=== PATIENT | male | born 1940 | race Caucasian/White ===

== ENCOUNTER 2021-09-29 13:13 | Inpatient (IN) | payer MEDICAID, MEDICARE ==
[~2021-09-29] VITALS: Ht 174 cm; Wt 86.4 kg
[~2021-09-29 13:13] MED LIST: XAL0.005OS RIGHTEYE
--- NOTE | 2021-09-29 13:39 | NUR ---
[facility] ([facility] [employer], #[phone]
[2021-09-29] MEDS ORDERED: normal saline 1000ML IV soln IVB ONE (14:05)
[2021-09-29 14:34] LABS: BASOPHILS % (AUTO) 0.4 % (0-1); EOSINOPHILS % (AUTO) 0.2 % (0-6); HEMOGLOBIN 15.8 g/dl (14.0-17.9); LYMPHOCYTES # (AUTO) 1.7 X10'3 (1.1-4.8); LYMPHOCYTES % (AUTO) 19.3 % (21-51); MEAN CORPUSCULAR HEMOGLOBIN 31.3 PG (27.0-31.0); MEAN CORPUSCULAR HGB CONC 33.5 g/dL (33.0-36.5); MEAN CORPUSCULAR VOLUME 93.2 FL (78-98); MEAN PLATELET VOLUME 6.9 FL (7.4-10.4); MONOCYTES # (AUTO) 0.7 X10'3 (0-0.9); MONOCYTES % (AUTO) 7.8 % (2-12); NEUTROPHILS # (AUTO) 6.2 X10'3 (1.8-7.7); NEUTROPHILS % (AUTO) 72.3 % (42-75); PLATELET COUNT 293 X10'3 (140-440); RED BLOOD COUNT 5.04 X10'6 (4.70-6.10); RED CELL DISTRIBUTION WIDTH 14.4 % (11.5-14.5); WHITE BLOOD COUNT 8.6 X10'3 (4.5-11.0)
[2021-09-29 14:45] LABS: ALANINE AMINOTRANSFERASE 24 U/L (12-78); ALBUMIN 4.2 G/DL (3.4-5.0); ALKALINE PHOSPHATASE 135 IU/L (46-116); ANION GAP 12 (8-16); ASPARTATE AMINO TRANSFERASE 19 U/L (10-37); BILIRUBIN,TOTAL 0.8 MG/DL (0.1-1.0); BLOOD UREA NITROGEN 27 MG/DL (7-18); BUN/CREATININE RATIO 16.2 (5.4-32.0); CALCIUM 9.5 MG/DL (8.5-10.1); CHLORIDE 106 MMOL/L (99-107); CREATININE 1.67 MG/DL (0.60-1.10); GLUCOSE 113 MG/DL (70-104); POTASSIUM 4.8 MMOL/L (3.5-5.1); SODIUM 143 MMOL/L (135-145); TOTAL CARBON DIOXIDE 25.4 MMOL/L (24-32); TOTAL PROTEIN 8.6 G/DL (6.4-8.2); eGFR 40 ML/MIN
[2021-09-29] MEDS ORDERED: aspirin 81mg tab.chew PO ONE (15:10)
[2021-09-29] MEDS ORDERED: NO HOME MEDS (15:48)
[2021-09-29] MEDS ORDERED: magnesium Cl slow-release 64mg tablet PO PRN (16:25)
[2021-09-29] MEDS ORDERED: magnesium 2GM in 50ml NS 50 ML IV PRN (16:25)
[2021-09-29] MEDS ORDERED: POTASSIUM BICARB 20meq eff tab 20 MEQ TABLET.EFF PO PRN ×2 (16:25)
[2021-09-29] MEDS ORDERED: mag hydrox/Alum hydrox/simeth 30ml oral suspension PO PRN (16:25)
[2021-09-29] MEDS ORDERED: magnesium 4gm in 100ml NS 100 ML IV PRN (16:25)
[2021-09-29] MEDS ORDERED: ondansetron/PF 4mg/2ml inj IV PRN (16:25)
[2021-09-29] MEDS ORDERED: magnesium hydroxide 30ml (MOM) UD suspension PO PRN (16:25)
[2021-09-29] MEDS ORDERED: ondansetron 4mg rapidly disintigrating tab PO PRN (16:25)
[2021-09-29] MEDS ORDERED: PERFLUTREN PROTEIN-A MICROSPHR (Optison) 0.22 MG/ML 3ML VIAL IV ONE (16:25)
[2021-09-29] MEDS ORDERED: potassium CL 10mEq/100ml bag 100 ML IV PRN (16:25)
[2021-09-29] MEDS: normal saline 1000ml 1,000 ML IV SCH ×2 (16:25→21:47)
[2021-09-29 17:11] LABS: HEMOGLOBIN A1C 5.8 % (4.5-6.2)
[2021-09-29] MEDS ORDERED: heparin 10,000 units/1 ML INJ IV ONE (17:21)
[2021-09-29] MEDS: HEPARIN SOD,PORK IN 0.45% NACL 250 ML IV SCH (17:22)
[2021-09-29] MEDS: K and/or MAG REPLACEMENT MC SCH (18:52)
[2021-09-29] MEDS: docusate sod 100mg capsule PO SCH (18:52)
[2021-09-29 19:00] LABS: APTT 25 SECONDS (22-32)
[2021-09-29 19:01] LABS: BASOPHILS % (AUTO) 0.4 % (0-1); EOSINOPHILS % (AUTO) 0.4 % (0-6); HEMATOCRIT 44.1 % (42.0-52.0); HEMOGLOBIN 14.7 g/dl (14.0-17.9); LYMPHOCYTES # (AUTO) 2.1 X10'3 (1.1-4.8); LYMPHOCYTES % (AUTO) 28.2 % (21-51); MEAN CORPUSCULAR HEMOGLOBIN 31.5 PG (27.0-31.0); MEAN CORPUSCULAR HGB CONC 33.5 g/dL (33.0-36.5); MEAN CORPUSCULAR VOLUME 94.1 FL (78-98); MEAN PLATELET VOLUME 7.1 FL (7.4-10.4); MONOCYTES # (AUTO) 0.6 X10'3 (0-0.9); MONOCYTES % (AUTO) 8.7 % (2-12); NEUTROPHILS # (AUTO) 4.6 X10'3 (1.8-7.7); NEUTROPHILS % (AUTO) 62.3 % (42-75); PLATELET COUNT 252 X10'3 (140-440); RED BLOOD COUNT 4.68 X10'6 (4.70-6.10); RED CELL DISTRIBUTION WIDTH 14.2 % (11.5-14.5); WHITE BLOOD COUNT 7.4 X10'3 (4.5-11.0)
[2021-09-29] MEDS ORDERED: metoprolol tartrate 25mg tablet PO ONE (21:35)
[2021-09-29 21:49] VITALS: BP 182/90
[2021-09-29] MEDS ORDERED: nitroGLYCERIN 0.4mg SUBLingual tab SL PRN (22:45)
[2021-09-29] MEDS ORDERED: regadenoson 0.4mg/5ml syringe IV PRN (22:45)
[2021-09-29] MEDS ORDERED: metoprolol tartrate 1mg/ml inj IV PRN (22:45)
[2021-09-29] MEDS ORDERED: aminophylline 500mg/20ml vial IV PRN (22:45)
[2021-09-29 23:26] VITALS: BP 132/71
[2021-09-30] VITALS (14 sets, daily range): BP systolic 108–152; BP diastolic 62–90
[2021-09-30 01:00] LABS: BASOPHILS # (AUTO) 0.1 X10'3 (0-0.2); BASOPHILS % (AUTO) 0.9 % (0-1); EOSINOPHILS # (AUTO) 0.1 X10'3 (0-0.9); EOSINOPHILS % (AUTO) 1.4 % (0-6); HEMATOCRIT 41.7 % (42.0-52.0); HEMOGLOBIN 14.2 g/dl (14.0-17.9); LYMPHOCYTES # (AUTO) 2.5 X10'3 (1.1-4.8); LYMPHOCYTES % (AUTO) 32.9 % (21-51); MEAN CORPUSCULAR HEMOGLOBIN 31.9 PG (27.0-31.0); MEAN CORPUSCULAR HGB CONC 34.1 g/dL (33.0-36.5); MEAN CORPUSCULAR VOLUME 93.7 FL (78-98); MEAN PLATELET VOLUME 7.1 FL (7.4-10.4); MONOCYTES # (AUTO) 0.7 X10'3 (0-0.9); MONOCYTES % (AUTO) 9.5 % (2-12); NEUTROPHILS # (AUTO) 4.2 X10'3 (1.8-7.7); NEUTROPHILS % (AUTO) 55.3 % (42-75); PLATELET COUNT 252 X10'3 (140-440); RED BLOOD COUNT 4.46 X10'6 (4.70-6.10); RED CELL DISTRIBUTION WIDTH 14.2 % (11.5-14.5); WHITE BLOOD COUNT 7.6 X10'3 (4.5-11.0)
[2021-09-30 01:17] LABS: ALANINE AMINOTRANSFERASE 18 U/L (12-78); ALBUMIN 3.3 G/DL (3.4-5.0); ALBUMIN/GLOBULIN RATIO 0.9 (1.1-1.5); ALKALINE PHOSPHATASE 113 IU/L (46-116); ANION GAP 12 (8-16); ASPARTATE AMINO TRANSFERASE 17 U/L (10-37); BILIRUBIN,TOTAL 0.6 MG/DL (0.1-1.0); BLOOD UREA NITROGEN 26 MG/DL (7-18); BUN/CREATININE RATIO 22.2 (5.4-32.0); CALCIUM 8.4 MG/DL (8.5-10.1); CHLORIDE 108 MMOL/L (99-107); CHOL/HDL RATIO 3.5 (0.00-4.99); CHOLESTEROL 159 MG/DL (0-200); CREATININE 1.17 MG/DL (0.60-1.10); GLUCOSE 122 MG/DL (70-104); HDL CHOLESTEROL 45 MG/DL (35-60); LDL CHOLESTEROL 99 MG/DL (50-100); MAGNESIUM 1.9 MG/DL (1.5-2.4); PHOSPHORUS 3.7 MG/DL (2.3-4.5); POTASSIUM 4.2 MMOL/L (3.5-5.1); SODIUM 144 MMOL/L (135-145); TOTAL CARBON DIOXIDE 24.3 MMOL/L (24-32); TRIGLYCERIDES 48 MG/DL (20-135); eGFR 60 ML/MIN
[2021-09-30] MEDS: heparin 10,000 units/1 ML INJ IV PRN ×2 (01:41→13:47)
--- NOTE | 2021-09-30 06:28 | NUR ---
Problems reprioritized. Patient report given, questions answered & plan of care reviewed with BONNIE MEADOWS.
--- NOTE | 2021-09-30 06:35 | NUR ---
Patient in room PCU 3015. I have received report from Maribell MEADOWS and had the opportunity to ask questions and assume patient care.
[2021-09-30] MEDS: K and/or MAG REPLACEMENT MC SCH ×2 (08:00→20:00)
--- NOTE | 2021-09-30 08:22 | NUR ---
Paged Dr. Zavala regarding pts ptt of 124. I will follow protocol. Message: 30`5A, Johnna Osorio. Pts ptt is 124. I will hold per protocol. Ana Luisa [facility] 6552.
[2021-09-30] MEDS: docusate sod 100mg capsule PO SCH ×2 (10:10→20:00)
[2021-09-30] MEDS: aspirin 81mg, enteric-coated 1 TAB TABLET.DR PO SCH (10:10)
--- NOTE | 2021-09-30 11:34 | NUR ---
Paged Dr. Zavala regarding if pt can have contrast media today since he already had a lexiscan done this morning. Message: [id number], Johnna Osorio. Pt had a lexiscan this morning. Is it ok for the patient to receive contrast media today? Ana Luisa [facility] 3796.
[2021-09-30] MEDS ORDERED: iohexol 350MG/ML 100ml bottle IV ONE (12:18)
[2021-09-30] MEDS: normal saline 1000ml 1,000 ML IV SCH ×2 (12:25→22:25)
--- NOTE | 2021-09-30 13:11 | NUR ---
Paged Dr. Zavala regarding results from the CTA. Message: [id number], Johnna Osorio. 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 The report should be in soon. [facility] 5371.
--- NOTE | 2021-09-30 16:02 | NUR ---
Paged Dr. Zavala asking if the patient can eat. Message: [id number], Jhonna Osorio. Can the patient eat? Ana Luisa [facility] 3974.
[2021-09-30] MEDS: atorvastatin 20mg tablet PO SCH (16:29)
--- NOTE | 2021-09-30 18:08 | NUR ---
Problems reprioritized. Patient report given, questions answered & plan of care reviewed with Prudence RN, patient stable at transfer of care.
--- NOTE | 2021-09-30 19:10 | NUR ---
Patient in room PCU 3015. I have received report from BONNIE MEADOWS and had the opportunity to ask questions and assume patient care.
[2021-09-30] MEDS: metoprolol tartrate 12.5mg (1/2 tablet) PO SCH (19:53)
[2021-09-30] MEDS: HEPARIN SOD,PORK IN 0.45% NACL 250 ML IV SCH (19:55)
[2021-10-01 02:00] VITALS: BP 105/72
[2021-10-01 02:14] LABS: BASOPHILS % (AUTO) 0.7 % (0-1); EOSINOPHILS # (AUTO) 0.2 X10'3 (0-0.9); EOSINOPHILS % (AUTO) 2.4 % (0-6); HEMATOCRIT 40.1 % (42.0-52.0); HEMOGLOBIN 13.9 g/dl (14.0-17.9); LYMPHOCYTES # (AUTO) 2.6 X10'3 (1.1-4.8); LYMPHOCYTES % (AUTO) 35.2 % (21-51); MEAN CORPUSCULAR HEMOGLOBIN 32.2 PG (27.0-31.0); MEAN CORPUSCULAR HGB CONC 34.6 g/dL (33.0-36.5); MEAN CORPUSCULAR VOLUME 93.3 FL (78-98); MEAN PLATELET VOLUME 6.9 FL (7.4-10.4); MONOCYTES # (AUTO) 0.6 X10'3 (0-0.9); MONOCYTES % (AUTO) 8.5 % (2-12); NEUTROPHILS # (AUTO) 3.9 X10'3 (1.8-7.7); NEUTROPHILS % (AUTO) 53.2 % (42-75); PLATELET COUNT 237 X10'3 (140-440); RED CELL DISTRIBUTION WIDTH 13.9 % (11.5-14.5); WHITE BLOOD COUNT 7.3 X10'3 (4.5-11.0)
[2021-10-01 02:43] LABS: ALANINE AMINOTRANSFERASE 24 U/L (12-78); ALBUMIN 3.1 G/DL (3.4-5.0); ALBUMIN/GLOBULIN RATIO 0.9 (1.1-1.5); ALKALINE PHOSPHATASE 114 IU/L (46-116); ANION GAP 9 (8-16); ASPARTATE AMINO TRANSFERASE 18 U/L (10-37); BILIRUBIN,TOTAL 0.5 MG/DL (0.1-1.0); BLOOD UREA NITROGEN 19 MG/DL (7-18); BUN/CREATININE RATIO 19.4 (5.4-32.0); CHLORIDE 107 MMOL/L (99-107); CREATININE 0.98 MG/DL (0.60-1.10); GLUCOSE 97 MG/DL (70-104); MAGNESIUM 1.5 MG/DL (1.5-2.4); POTASSIUM 3.9 MMOL/L (3.5-5.1); SODIUM 141 MMOL/L (135-145); TOTAL CARBON DIOXIDE 24.6 MMOL/L (24-32); TOTAL PROTEIN 6.7 G/DL (6.4-8.2); eGFR 74 ML/MIN
[2021-10-01 06:00] VITALS: BP 120/73
--- NOTE | 2021-10-01 06:38 | NUR ---
Problems reprioritized. Patient report given, questions answered & plan of care reviewed with BONNIE MEADOWS.
[2021-10-01] MEDS: K and/or MAG REPLACEMENT MC SCH ×2 (08:00→20:00)
--- NOTE | 2021-10-01 09:05 | NUR ---
Tele med monitor in room, request completed - pends review A new connect request was successfully created for: ALLAN BERGMAN : 1940 ConnectID: [id number] REASON: Abnormal Imaging ACUITY: Acuity Level 4 SUBMITTED: 10/01/2021 09:04 PDT
[2021-10-01] MEDS: aspirin 81mg, enteric-coated 1 TAB TABLET.DR PO SCH (09:17)
[2021-10-01] MEDS: pantoprazole 40mg Tablet.DR PO SCH (09:17)
[2021-10-01] MEDS: atorvastatin 20mg tablet PO SCH (09:17)
[2021-10-01] MEDS: metoprolol tartrate 12.5mg (1/2 tablet) PO SCH ×2 (09:18→20:02)
[2021-10-01] MEDS: docusate sod 100mg capsule PO SCH ×2 (09:19→20:03)
[2021-10-01 11:00] VITALS: BP 152/88
--- NOTE | 2021-10-01 11:00 | NUR ---
notified of need for leg xray to check for ability to do MRI, order received.
--- NOTE | 2021-10-01 11:00 | NUR ---
Dr. Zavala notified f
[2021-10-01] MEDS: normal saline 1000ml 1,000 ML IV SCH ×2 (13:00→22:35)
[2021-10-01 15:00] VITALS: BP 118/75
[2021-10-01] MEDS: heparin 10,000 units/1 ML INJ IV PRN (16:21)
--- NOTE | 2021-10-01 16:47 | NUR ---
Message: 3015aBashir Oropeza. IR doc at [facility] is trying to get ahold of you. Please call [phone]. thx Transaction number: [id number]
[2021-10-01] MEDS: clopidogrel 75mg tablet PO SCH (17:14)
--- NOTE | 2021-10-01 19:20 | NUR ---
Problems reprioritized. Patient report given, questions answered & plan of care reviewed with Prudence RN, patient stable at transfer of care..
--- NOTE | 2021-10-01 19:23 | NUR ---
Patient in room PCU 3015. I have received report from BONNIE MEADOWS and had the opportunity to ask questions and assume patient care.
[2021-10-01 19:45] VITALS: BP 151/87
--- NOTE | 2021-10-01 23:25 | NUR ---
I observed Mavis ELLIOTT administer medications and have reviewed her charting Hillary Vilchis RN
--- NOTE | 2021-10-01 23:28 | NUR ---
Patient states last BM on 10/01/21. I did not observe.
[2021-10-01 23:43] VITALS: BP 158/84
[2021-10-02 02:00] VITALS: BP 131/71
[2021-10-02] MEDS: normal saline 1000ml 1,000 ML IV SCH ×2 (04:25→05:40)
--- NOTE | 2021-10-02 06:27 | NUR ---
Patient in room PCU 3015. I have received report from PERCY MEADOWS and had the opportunity to ask questions and assume patient care.
[2021-10-02 06:44] VITALS: BP 165/80
[2021-10-02 07:05] LABS: BASOPHILS % (AUTO) 0.4 % (0-1); EOSINOPHILS # (AUTO) 0.1 X10'3 (0-0.9); EOSINOPHILS % (AUTO) 2.3 % (0-6); HEMATOCRIT 40.8 % (42.0-52.0); HEMOGLOBIN 13.8 g/dl (14.0-17.9); LYMPHOCYTES # (AUTO) 1.8 X10'3 (1.1-4.8); LYMPHOCYTES % (AUTO) 27.7 % (21-51); MEAN CORPUSCULAR HEMOGLOBIN 31.5 PG (27.0-31.0); MEAN CORPUSCULAR HGB CONC 33.8 g/dL (33.0-36.5); MEAN CORPUSCULAR VOLUME 93.1 FL (78-98); MEAN PLATELET VOLUME 7.1 FL (7.4-10.4); MONOCYTES # (AUTO) 0.7 X10'3 (0-0.9); MONOCYTES % (AUTO) 11.5 % (2-12); NEUTROPHILS # (AUTO) 3.8 X10'3 (1.8-7.7); NEUTROPHILS % (AUTO) 58.1 % (42-75); PLATELET COUNT 250 X10'3 (140-440); RED BLOOD COUNT 4.38 X10'6 (4.70-6.10); WHITE BLOOD COUNT 6.5 X10'3 (4.5-11.0)
[2021-10-02 07:17] LABS: ALANINE AMINOTRANSFERASE 19 U/L (12-78); ALBUMIN 3.2 G/DL (3.4-5.0); ALBUMIN/GLOBULIN RATIO 0.9 (1.1-1.5); ALKALINE PHOSPHATASE 113 IU/L (46-116); ANION GAP 8 (8-16); ASPARTATE AMINO TRANSFERASE 16 U/L (10-37); BILIRUBIN,TOTAL 0.3 MG/DL (0.1-1.0); BLOOD UREA NITROGEN 14 MG/DL (7-18); CALCIUM 8.2 MG/DL (8.5-10.1); CHLORIDE 111 MMOL/L (99-107); CREATININE 1.08 MG/DL (0.60-1.10); GLUCOSE 84 MG/DL (70-104); MAGNESIUM 1.6 MG/DL (1.5-2.4); PHOSPHORUS 2.7 MG/DL (2.3-4.5); POTASSIUM 4.1 MMOL/L (3.5-5.1); SODIUM 145 MMOL/L (135-145); TOTAL CARBON DIOXIDE 26.2 MMOL/L (24-32); TOTAL PROTEIN 6.9 G/DL (6.4-8.2); eGFR 66 ML/MIN
[2021-10-02] MEDS: K and/or MAG REPLACEMENT MC SCH (08:00)
[2021-10-02] MEDS: docusate sod 100mg capsule PO SCH (08:06)
[2021-10-02] MEDS: atorvastatin 20mg tablet PO SCH (08:07)
[2021-10-02] MEDS: aspirin 81mg, enteric-coated 1 TAB TABLET.DR PO SCH (08:07)
[2021-10-02] MEDS: pantoprazole 40mg Tablet.DR PO SCH (08:07)
[2021-10-02] MEDS: clopidogrel 75mg tablet PO SCH (08:07)
[2021-10-02] MEDS: metoprolol tartrate 12.5mg (1/2 tablet) PO SCH (08:08)
[2021-10-02 11:00] VITALS: BP 163/90
[2021-10-02] MEDS ORDERED: CLOP75TA34 PO (11:01)
[2021-10-02] MEDS ORDERED: LOP12.5T PO (11:01)
[2021-10-02] MEDS ORDERED: ATOR20TA66 PO (11:01)
[2021-10-02] MEDS ORDERED: ASPI-1071 PO (11:01)
--- NOTE | 2021-10-02 13:08 | NUR ---
PAGER ID: [phone] MESSAGE: Devon Oropeza [id number] pt. SBP has been around 160 all AM. No PRns ordered. Reassessed BP before discharge. 186/90 at the moment. Pt. states hes been stressed about leaving this AM, but do you want to order anything? [place] 8625
[2021-10-02] MEDS ORDERED: hydrALAZINE 20mg/ml inj. IV ONE (13:15)
[2021-10-02 14:14] VITALS: BP 162/86
[2021-10-02 15:06] VITALS: BP 170/100
--- NOTE | 2021-10-02 15:06 | NUR ---
Hospitalist rounding on floor and aware of pt's BP. Patient tells MD that he is getting so worked up about being discharged but not being able to leave until his HTN resolved that it is giving him anxiety and making his BP worse. Pt. raising his voice and impulsively getting up out of bed. States that we why would he wait here to get medications when he can go home and relax in front of his bonsai trees and his blood pressure will come down at home. MD said ideally he would like to treat his HTN here, but pt. continued to refuse. Hospitalist oked discharge.
--- NOTE | 2021-10-02 15:09 | NUR ---
DISCHARGE NOTE: Reviewed discharge paperwork with pt. He agrees to f/u with computer compositor, stay hydrated and f/u with PCP. Agrees to be medication compliant. Discussed medications and possible ASE. Pt. know to p/u meds at preferred pharmacy and he knows when next dose due. Good verbal feedback on appropriate activity in [place] heat for 81 year old. Pt. knows to ask his PCP for repeat CTA in 3 months. PIVS DC'D, cannula intact, no s/sx bleeding noted, pressure bandage applied. of 48 years downstairs in car ready to take pt. home. Pt. left with all of his belongings.
== END 2021-10-02 15:18 | disposition home or self-care (01) | DRG 682 ==
LOC: ER 13:13 → ED HOLD 16:28 → PCU 3S 21:19
PROVIDERS: ADMIT Family Medicine; ATTEND Family Medicine
PROC: 4A10X4Z Monitoring of Central Nervous Electrical Activity, External Approach (ICD-10-PCS; principal; 2021-09-30)
PROC: 4A02XM4 Measurement of Cardiac Total Activity, External Approach (ICD-10-PCS; 2021-09-30)
PROC: 3E033HZ Introduction of Radioactive Substance into Peripheral Vein, Percutaneous Approach (ICD-10-PCS; 2021-09-30)
PROC: B3251ZZ Computerized Tomography (CT Scan) of Bilateral Common Carotid Arteries using Low Osmolar Contrast (ICD-10-PCS; 2021-09-30)
PROC: B32G1ZZ Computerized Tomography (CT Scan) of Bilateral Vertebral Arteries using Low Osmolar Contrast (ICD-10-PCS; 2021-09-30)
PROC: B32R1ZZ Computerized Tomography (CT Scan) of Intracranial Arteries using Low Osmolar Contrast (ICD-10-PCS; 2021-09-30)
PROC: B3281ZZ Computerized Tomography (CT Scan) of Bilateral Internal Carotid Arteries using Low Osmolar Contrast (ICD-10-PCS; 2021-09-30)
DX: N17.0 Acute kidney failure with tubular necrosis (principal); I21.A1 Myocardial infarction type 2; I77.74 Dissection of vertebral artery; G45.9 Transient cerebral ischemic attack, unspecified; E86.0 Dehydration; I70.0 Atherosclerosis of aorta; Z20.822 Contact with and (suspected) exposure to COVID-19; I10 Essential (primary) hypertension; F12.90 Cannabis use, unspecified, uncomplicated; R56.9 Unspecified convulsions; Z66 Do not resuscitate; Z79.02 Long term (current) use of antithrombotics/antiplatelets; Z79.82 Long term (current) use of aspirin; Z28.310 Unvaccinated for COVID-19; Z86.73 Personal history of transient ischemic attack (TIA), and cerebral infarction without residual deficits; Z79.899 Other long term (current) drug therapy; Z82.3 Family history of stroke; Z87.891 Personal history of nicotine dependence; Z88.5 Allergy status to narcotic agent
CPT/HCPCS: 36415; 70450; 70496; 70498; 71045; 73590; 78452; 80053; 80061; 82948; 83036; 83735; 84100; 84443; 84484; 85025; 85610; 85730; 87081; 87811; 93005; 93017; 93306; 95816; 99285; A9500; G0378; J0360; J1644; J2785; J3490; J7030; Q9967

== ENCOUNTER 2024-09-11 10:23 | Emergency (ER) | payer MEDICARE, MEDICAID ==
[~2024-09-11] VITALS: Ht 174 cm; Wt 84.2 kg
[~2024-09-11 10:23] MED LIST changes: +ATOR40TA71 PO; +CLOP-32 PO; +METO25TA6 PO; +TERA1CAP4 PO; -XAL0.005OS RIGHTEYE
[2024-09-11 10:51] VITALS: TEMP 99.3
--- NOTE | 2024-09-11 11:09 | Physician Documentation ---
History of Present Illness ~ Chief Complaint: Urinary Symptoms Stated Complaint: BLADDER INFECTION Time Seen by MD: 10:31 Primary Medical Doctor: NONE Source: patient Mode of Arrival: POV Exam Limitations: no limitations HPI Patient with dysuria over the past 7-10 days. No belly or new back pain. No fever. History of UTI. Medication Reconciliation Allergies: Coded Allergies: No Known Drug Allergies (Verified Allergy, Unknown, 09/29/21) acetaminophen (Verified Adverse Reaction, Unknown, GI UPSET, 09/11/24) codeine (Verified Adverse Reaction, Unknown, GI UPSET, 09/11/24) Scheduled Atorvastatin Calcium (Atorvastatin Calcium), 1 TAB PO DAILY, (Reported) Cephalexin*Monohydrate* (Keflex*), 1 CAP PO TID Clopidogrel Bisulfate (Plavix), 1 TAB PO DAILY, (Reported) Metoprolol Tartrate (Metoprolol Tartrate), 1 TAB PO DAILY, (Reported) Terazosin HCl (Terazosin HCl), 1 CAP PO DAILY, (Reported) Past Medical History Past Medical History: No Pertinent History Past Surgical History: no surgical history Drug Use: none Lives with: Spouse Lives In: Home Occupation: retired Review of Systems All Other Systems at this time: Reviewed and Negative Physical Exam Vital Signs: Temperature: 99.3, Source: Temporal, Heart Rate: 80, Respiratory Rate: 16, BP: 142/82, Pulse Oximetry: 100, Weight: 84.250 Oxygen Flow Rate: 0 General Appearance: alert, WD/WN Neck: normal inspection Respiratory: normal breath sounds Chest: no accessory muscle use Cardiolovascular: regular rate, rhythm Skin: normal color, warm/dry Neurologic: oriented x4, memory intact Psychiatric: normal mood/affect Progress Progress Note Patient in with symptoms and UA consistent with UTI. No signs of sepsis. Culture is pending. Placing him on Keflex. Discharged home in good condition with care instructions. Follow-up or return if not improving or if new or worsening symptoms. Results/Orders Results/Orders Orders - KRZYSZTOF JEFFREY MD Cult Urine + [address] (09/11/24 11:28) Completed Orders - KRZYSZTOF JEFFREY MD Ua W/Microscopic, Cult If Ind (09/11/24 10:45) Vital Signs 09/11/24 09/11/24 09/11/24 10:27 10:51 10:52 Temp 99.3 99.3 Pulse 80 80 Resp 16 16 B/P (MAP) 156/82 142/82 (102) Pulse Ox 99 100 O2 Flow Rate 0 0 Laboratory Tests Test 09/11/24 10:45 Urine Specimen Description Voided Urine Color Yellow Urine Clarity Cloudy Urine pH 6.0 Urine Specific [place] 1.025 Urine Protein >=300 H Urine Glucose (UA) Negative Urine Ketones Negative Urine Occult Blood Large H Urine Nitrite Negative Urine Bilirubin Negative Urine Urobilinogen 0.2 Urine Leukocyte Esterase Moderate H Urine RBC 3-10 Urine WBC Tntc H Urine Squamous Epithelial Cells Few Urine Bacteria 3+ Urine Mucus None seen Urine Culture Indicated Indicated Volume Urine Centrifuged 10 ml Urine Comment Departure Impression: Primary Impression: Acute urinary tract infection Discharge Instructions: Urinary Tract Infection, Adult Additional Instructions: Complete your antibiotics. Follow up if not improving or if new or worsening symptoms. Referrals: NO PRIMARY CARE PROVIDER (PCP) Prescriptions Cephalexin*Monohydrate* (Keflex*) 500 Mg Capsule 1 CAP PO TID for 7 Days, #21 CAP Prov: KRZYSZTOF JEFFREY MD 09/11/24 Education Educated: Patient Educated regarding: diagnosis, treatment, need for follow up Signature Scribe Signature: No scribe used Attestation: No scribe used KRZYSZTOF JEFFREY MD Sep 11, 2024 11:09
[2024-09-11 11:18] LABS: LEUKOCYTE ESTERASE ,URINE MODERATE (Neg); NITRITES, URINE NEGATIVE (Neg); OCCULT BLOOD,URINE LARGE (Neg)
[2024-09-11 11:19] LABS: UA COLLECTION TYPE VOIDED
[2024-09-11 11:28] LABS: MUCUS STRANDS NONE SEEN /LPF (Neg); SQUAMOUS EPITHELIAL CELL,UR FEW /LPF (FEW)
[2024-09-11] MEDS ORDERED: CEPH-585 PO (11:36)
[2024-09-11 11:46] VITALS: BP 130/68; PULSE 80; RESP 14; O2SAT 99
== END 2024-09-11 11:48 | disposition home or self-care (01) ==
LOC: ER 10:24
DX: N39.0 Urinary tract infection, site not specified (principal); Z88.5 Allergy status to narcotic agent; Z88.6 Allergy status to analgesic agent
CPT/HCPCS: 81001; 87088; 99283